=== PATIENT | female | born 1985 | race Caucasian/White ===

== ENCOUNTER → 2016-09-14 | Day surgery (SDC) | payer OTHER ==
[~2016-09-14] VITALS: Ht 157.5 cm; Wt 83.9 kg
== END | disposition home or self-care (01) ==
LOC: FAS 09:50
DX: G56.01 Carpal tunnel syndrome, right upper limb (principal); K21.9 Gastro-esophageal reflux disease without esophagitis; Z91.040 Latex allergy status; Z91.018 Allergy to other foods; Z79.2 Long term (current) use of antibiotics; Z79.899 Other long term (current) drug therapy
CPT/HCPCS: 84703; J1100; J2405; J2704; J3010

== ENCOUNTER → 2021-12-16 | Day surgery (SDC) | payer OTHER ==
[~2021-12-16] VITALS: Ht 157.5 cm; Wt 86.2 kg
[~2021-12-16] MED LIST: ACETAMINOPHEN500 M1 PO; COLACE100 MG PO; MECLIZINE HCL25 MG PO; MOTRIN600 MG PO; NEXIUM20 M1 PO; OXY-IR 5MG5 MG PO; SERTRALINE HCL100 MG PO; SPIRONOLACTONE100 M1 PO; WELLBUTRIN75 MG PO
[2021-12-16 09:04] LABS: BUN/CREAT RATIO (CALC) 12.9 RATIO; CREATININE 0.93 mg/dL (0.51-0.95); POTASSIUM 4.2 mmol/L (3.5-5.1)
== END | disposition home or self-care (01) ==
LOC: FAS 06:33
PROVIDERS: Anesthesiology
DX: K42.9 Umbilical hernia without obstruction or gangrene (principal); K43.2 Incisional hernia without obstruction or gangrene; M62.08 Separation of muscle (nontraumatic), other site; K21.9 Gastro-esophageal reflux disease without esophagitis; M19.90 Unspecified osteoarthritis, unspecified site; F41.9 Anxiety disorder, unspecified; F17.210 Nicotine dependence, cigarettes, uncomplicated; Z79.899 Other long term (current) drug therapy; Z91.018 Allergy to other foods; Z91.040 Latex allergy status; Z72.89 Other problems related to lifestyle
CPT/HCPCS: 36415; 80048; 93005; J0690; J1100; J1170; J1644; J1885; J2250; J2405; J2704; J3010; J7120